=== PATIENT | male | born 2000 | race Caucasian/White ===

== ENCOUNTER 2018-04-02 17:28 | Observation (INO) | payer BC ==
[2018-04-02] MEDS ORDERED: SODIUM CHLORIDE 0.9% 1,000 ML IV STA (18:09)
[2018-04-02] MEDS ORDERED: KETOROLAC 30 MG/ML 1 ML VIAL IVP STA (18:09)
[2018-04-02] MEDS ORDERED: ONDANSETRON 4 MG/2 ML VIAL IVP STA (18:17)
--- NOTE | 2018-04-02 18:26 | ED ---
General Adult HPI - General Chief complaint: Abdominal Pain Stated complaint: abd pain Time Seen by Provider: 04/02/18 17:51 Source: patient, RN notes reviewed Mode of arrival: ambulatory Limitations: no limitations - History of Present Illness Initial comments: 18-year-old male presents to the emergency determine for a chief complaint of abdominal pain times one day. Patient states he woke up with the pain earlier this morning. Patient states the pain has been constant. He states it is on his right upper quadrant and midepigastric area as well as around his bellybutton. Patient states he has not been hungry or had an appetite today. He did try to eat some crackers earlier in case that made it better but it did not. Patient has also been nauseous but has not vomited. No diarrhea. Last bowel movement was normal around 4 hours ago. Patient denies any testicular pain. No concern for STDs. Denies urinary symptoms. Patient did try to take Motrin which did not help with the pain. No abdominal surgeries. Patient up-to -date on immunizations. No fevers or chills at home. Patient has no other complaints at this time including shortness of breath, chest pain, abdominal pain, nausea or vomiting, headache, or visual changes. - Related Data Home Medications Medication Instructions Recorded Confirmed No Known Home Medications 04/02/18 04/02/18 Allergies Allergy/AdvReac Type Severity Reaction Status Date / Time Penicillins Allergy Unknown Verified 04/02/18 17:29 venom-honey bee Allergy Unknown Verified 04/02/18 17:29 [bee venom (honey bee)] Review of Systems ROS Statement: Those systems with pertinent positive or pertinent negative responses have been documented in the HPI. ROS Other: All systems not noted in ROS Statement are negative. Past Medical History Past Medical History: No Reported History History of Any Multi-Drug Resistant Organisms: None Reported Past Surgical History: No Surgical Hx Reported Past Psychological History: No Psychological Hx Reported Smoking Status: Never smoker Past Alcohol Use History: None Reported Past Drug Use History: None Reported General Exam Limitations: no limitations General appearance: alert, in no apparent distress Eye exam: Present: normal appearance. Absent: scleral icterus, conjunctival injection Neck exam: Present: normal inspection, full ROM. Absent: tenderness, meningismus, lymphadenopathy Respiratory exam: Present: normal lung sounds bilaterally. Absent: respiratory distress, wheezes, rales, rhonchi, stridor Cardiovascular Exam: Present: regular rate, normal rhythm, normal heart sounds. Absent: systolic murmur, diastolic murmur, rubs, gallop, clicks GI/Abdominal exam: Present: soft, tenderness (mild tenderness to the RLQ), normal bowel sounds, other (positive rovsing sign, negative obturator). Absent : distended, guarding, rebound, rigid Course Vital Signs 04/02/18 04/02/18 17:30 18:55 Temperature 97.5 F L 99.4 F Pulse Rate 71 99 Respiratory 18 18 Rate Blood Pressure 140/89 121/60 O2 Sat by Pulse 96 98 Oximetry Medical Decision Making - Medical Decision Making 18-year-old male presents to the emergency department for a chief complaint of abdominal pain times one day. Patient noticed at around 6 AM this morning. He has had a low appetite and nausea. No vomiting or diarrhea. Patient states the pain is midepigastric and mid abdominal. No fevers or chills at home. No testicular pain. Patient is afebrile in the emergency department. Pulse rate 71. On exam patient has positive right lower quadrant pain as well as positive Rovsing sign. Negative obturator sign. White count 20.6 with a left shift. CT of the abdomen shows a distended tubular structure measuring approximately 1-1 cm in diameter. Suspect these represent a distended appendix with an appendicolith. Dr. pace was consulted and will be admitting the patient and seeing him tonight. - Lab Data Result diagrams: 04/02/18 18:09 04/02/18 18:09 Lab Results 04/02/18 04/02/18 04/02/18 Range/Units 18:09 18:09 18:09 WBC 20.6 H (4.0-11.0) k/uL RBC 5.82 (4.30-5.90) m/uL Hgb 16.9 (13.0-17.5) gm/dL Hct 49.0 (39.0-53.0) % MCV 84.2 (80.0-100.0) fL MCH 29.0 (25.0-35.0) pg MCHC 34.5 (31.0-37.0) g/dL RDW 12.3 (11.5-15.5) % Plt Count 327 (150-450) k/uL Neutrophils % 87 % Lymphocytes % 7 % Monocytes % 5 % Eosinophils % 1 % Basophils % 0 % Neutrophils # 18.0 H (1.3-7.7) k/uL Lymphocytes # 1.3 (1.0-4.8) k/uL Monocytes # 1.0 (0-1.0) k/uL Eosinophils # 0.1 (0-0.7) k/uL Basophils # 0.0 (0-0.2) k/uL Sodium 141 (137-145) mmol/L Potassium 4.2 (3.5-5.1) mmol/L Chloride 105 (98-107) mmol/L Carbon Dioxide 25 (22-30) mmol/L Anion Gap 11 mmol/L BUN 11 (9-20) mg/dL Creatinine 0.80 (0.66-1.25) mg/dL Est GFR (CKD-EPI)AfAm >90 (>60 ml/min/1.73 sqM) Est GFR (CKD-EPI)NonAf >90 (>60 ml/min/1.73 sqM) Glucose 126 H (74-99) mg/dL Calcium 10.2 (8.4-10.2) mg/dL Total Bilirubin 1.1 (0.2-1.3) mg/dL AST 29 (17-59) U/L ALT 45 (21-72) U/L Alkaline Phosphatase 110 (38-126) U/L Total Protein 7.9 (6.3-8.2) g/dL Albumin 4.8 (3.5-5.0) g/dL Amylase 45 (30-110) U/L Lipase 33 (23-300) U/L Urine Color Yellow Urine Appearance Clear (Clear) Urine pH 6.5 (5.0-8.0) Ur Specific [place] 1.019 (1.001-1.035) Urine Protein Trace H (Negative) Urine Glucose (UA) Negative (Negative) Urine Ketones 2+ H (Negative) Urine Blood Negative (Negative) Urine Nitrite Negative (Negative) Urine Bilirubin Negative (Negative) Urine Urobilinogen <2.0 (<2.0) mg/dL Ur Leukocyte Esterase Negative (Negative) Disposition Clinical Impression: Appendicitis Disposition: ADMITTED IP TO THIS HOSP Is patient prescribed a controlled substance at d/c from ED?: No Referrals: Rikki Arzola MD [Primary Care Provider] - 1-2 days Time of Disposition: 20:50
[2018-04-02 18:27] LABS: Basophils % (A) 0 %; Eosinophils # (A) 0.1 k/uL (0-0.7); Eosinophils % (A) 1 %; HGB 16.9 gm/dL (13.0-17.5); Lymphocytes # (A) 1.3 k/uL (1.0-4.8); Lymphocytes % (A) 7 %; MCHC 34.5 g/dL (31.0-37.0); MCV 84.2 fL (80.0-100.0); Mean Platelet Volume 6.6; Monocytes % (A) 5 %; Neutrophils % (A) 87 %; Platelet Count 327 k/uL (150-450); RBC 5.82 m/uL (4.30-5.90); RDW 12.3 % (11.5-15.5); WBC 20.6 k/uL (4.0-11.0)
[2018-04-02 18:28] LABS: Appearance,Urine Clear (Clear); Bilirubin,Urine Negative (Negative); Blood,Urine Negative (Negative); Color,Urine Yellow; Glucose,Urine (UA) Negative (Negative); Ketones,Urine 2+ (Negative); Leukocyte Esterase,Urine Negative (Negative); Nitrite,Urine Negative (Negative); PH, Urine 6.5 (5.0-8.0); Protein,Urine Trace (Negative); Specific Gravity,Urine 1.019 (1.001-1.035); Urobilinogen,Urine <2.0 mg/dL (<2.0)
[2018-04-02 18:36] LABS: ALT 45 U/L (21-72); AST 29 U/L (17-59); Albumin 4.8 g/dL (3.5-5.0); Alkaline Phosphatase 110 U/L (38-126); Amylase 45 U/L (30-110); Anion Gap 11 mmol/L; Blood Urea Nitrogen 11 mg/dL (9-20); Calcium 10.2 mg/dL (8.4-10.2); Carbon Dioxide 25 mmol/L (22-30); Chloride 105 mmol/L (98-107); Glucose 126 mg/dL (74-99); Lipase 33 U/L (23-300); Potassium 4.2 mmol/L (3.5-5.1); Sodium 141 mmol/L (137-145); Total Bilirubin 1.1 mg/dL (0.2-1.3); Total Protein 7.9 g/dL (6.3-8.2)
[2018-04-02] MEDS ORDERED: ACETAMINOPHEN IV (For NPO) 1,000 MG in EMPTY BAG 1 BAG IVPB ONE (18:49)
--- NOTE | 2018-04-02 19:55 | CT ---
EXAMINATION TYPE: CT abdomen pelvis w con DATE OF EXAM: 04/02/2018 COMPARISON: No prior study available in the PACS system. HISTORY: Patient complains of right flank pain. CT DLP: 449 mGycm Automated exposure control for dose reduction was used. TECHNIQUE: Helical acquisition of images was performed from the lung bases through the pelvis. CONTRAST: Performed without Oral Contrast and with IV Contrast, patient injected with 100 mL of Isovue 300. FINDINGS: LUNG BASES: No significant abnormality is appreciated. LIVER/GB: No distention of the intrahepatic biliary radicles or cholelithiasis. PANCREAS: No significant abnormality is seen. SPLEEN: No significant abnormality is seen. ADRENALS: No significant abnormality is seen. KIDNEYS: No significant abnormality is seen. FREE AIR: No free air is visualized. RETROPERITONEAL ADENOPATHY: None visualized REPRODUCTIVE ORGANS: No significant abnormality is seen URINARY BLADDER: No significant abnormality is seen. PELVIC ADENOPATHY: None visualized. OSSEOUS STRUCTURES: No significant abnormality is seen. BOWEL: No free air or bowel obstruction. There is a calcific density projecting medial to the cecum i ncite a tubular structure suggestive of appendicolith with a thickened appendix indicating appendicit is. There is a small amount of free fluid inside the cul-de-sac and peritoneal cavity. The fluid measures 5 x 1.5 cm. OTHER: IMPRESSION: DISTENDED TUBULAR STRUCTURE MEASURING APPROXIMATELY 1 TO 1 CM IN DIAMETER WITH INTRALUMINAL CALCIFICA TION PROJECTING MEDIAL TO THE CECUM. SUSPECT THESE REPRESENT A DISTENDED APPENDIX WITH AN APPENDICOLI TH. SUSPECT APPENDICITIS UNDER PORTABLE OTHERWISE. THERE IS ALSO SMALL AMOUNT OF FREE FLUID IN THE CU L-DE-SAC AND LOWER PELVIS DESCRIBED ABOVE.
[2018-04-02] MEDS ORDERED: HEPARIN SODIUM,PORCINE 5,000 UNIT/ML 1 ML VIAL SQ STA (20:42)
[2018-04-02] MEDS ORDERED: metroNIDAZOLE-NS PMX 500 MG in SALINE 1 100ML.BAG IVPB STA (20:44)
[2018-04-02] MEDS ORDERED: LEVOFLOXACIN 500MG-D5W PMX 500 MG in DEXTROSE/WATER 1 100ML.BAG IVPB STA (20:44)
[2018-04-02] MEDS ORDERED: KETOROLAC 30 MG/ML 1 ML VIAL IVP PRN (20:52)
[2018-04-02] MEDS ORDERED: NALOXONE 0.4 MG/ML 1 ML VIAL IV PRN ×2 (20:52→22:44)
[2018-04-02] MEDS ORDERED: MORPHINE SULFATE 4 MG/ML SYRINGE IV PRN (20:52)
[2018-04-02] MEDS ORDERED: ONDANSETRON 4 MG/2 ML VIAL IVP PRN (20:52)
[2018-04-02] MEDS ORDERED: SODIUM CHLORIDE 0.9% 1,000 ML IV SCH (21:00)
[2018-04-02] MEDS ORDERED: ONDANSETRON 4 MG/2 ML VIAL ONE (21:30)
[2018-04-02] MEDS ORDERED: DEXAMETHASONE SOD PHOS (MDV) 100 MG/10 ML VIAL ONE (21:30)
[2018-04-02] MEDS ORDERED: HEPARIN SODIUM,PORCINE 5,000 UNIT/ML 1 ML VIAL ONE (21:30)
[2018-04-02] MEDS ORDERED: SUCCINYLCHOLINE CHLORIDE 100 MG/5 ML SYR IV ONE (21:46)
[2018-04-02] MEDS ORDERED: GLYCOPYRROLATE 0.2 MG/ML 2 ML VIAL ONE (21:46)
[2018-04-02] MEDS ORDERED: ROCURONIUM BROMIDE 10 MG/ML 10 ML VIAL IV ONE (21:46)
[2018-04-02] MEDS ORDERED: PROPOFOL 10 MG/ML 20 ML VIAL IV ONE (21:46)
[2018-04-02] MEDS ORDERED: LIDOCAINE 1% INJ 10MG/ML (20 ML MDV) ONE (21:46)
[2018-04-02] MEDS ORDERED: MIDAZOLAM 2 MG/2 ML VIAL ONE (21:46)
[2018-04-02] MEDS ORDERED: IV FLUID CONTINUATION 300 ML IV ONE (21:46)
[2018-04-02] MEDS ORDERED: fentaNYL (PF) 50 MCG/ML 2 ML AMP ONE (21:46)
[2018-04-02] MEDS ORDERED: NEOSTIGMINE 1 MG/ML 10 ML VIAL ONE (21:46)
--- NOTE | 2018-04-02 21:56 | P.GSHP ---
History of Present Illness H&P Date: 04/02/18 This is a 18-year-old male who presented with a chief complaint of abdominal pain right lower quadrant he states it started in his midepigastric area periumbilical and throughout the day moved down to his right lower quadrant he had some nausea no vomiting he denies any chills or fever. He has a minimal appetite is lasting to E was at 1:00 is never had pain like this before he denies any surgical history he has no significant past medical history. Past Medical History Past Medical History: No Reported History History of Any Multi-Drug Resistant Organisms: None Reported Past Surgical History: No Surgical Hx Reported Past Psychological History: No Psychological Hx Reported Smoking Status: Never smoker Past Alcohol Use History: None Reported Past Drug Use History: None Reported Medications and Allergies Home Medications Medication Instructions Recorded Confirmed Type No Known Home Medications 04/02/18 04/02/18 History Allergies Allergy/AdvReac Type Severity Reaction Status Date / Time Penicillins Allergy Unknown Verified 04/02/18 17:29 venom-honey bee Allergy Unknown Verified 04/02/18 17:29 [bee venom (honey bee)] Surgical - Exam Osteopathic Statement: *. No significant issues noted on an osteopathic structural exam other than those noted in the History and Physical/Consult. Vital Signs Temp Pulse Resp BP Pulse Ox 97.5 F L 71 18 140/89 96 04/02/18 17:30 04/02/18 17:30 04/02/18 17:30 04/02/18 17:30 04/02/18 17:30 - General well developed, well nourished, no distress - Eyes PERRL - Neck trachea midline - Respiratory normal expansion, normal respiratory effort - Cardiovascular Rhythm: regular - Abdomen nondistended, TTP RLQ Abdomen: soft - Neurologic normal coordination - Psychiatric oriented to time, oriented to person, oriented to place Results - Labs 04/02/18 18:09 04/02/18 18:09 Abnormal Lab Results - Last 24 Hours (Table) 04/02/18 04/02/18 04/02/18 Range/Units 18:09 18:09 18:09 WBC 20.6 H (4.0-11.0) k/uL Neutrophils # 18.0 H (1.3-7.7) k/uL Glucose 126 H (74-99) mg/dL Urine Protein Trace H (Negative) Urine Ketones 2+ H (Negative) Diabetes panel 04/02/18 Range/Units 18:09 Sodium 141 (137-145) mmol/L Potassium 4.2 (3.5-5.1) mmol/L Chloride 105 (98-107) mmol/L Carbon Dioxide 25 (22-30) mmol/L BUN 11 (9-20) mg/dL Creatinine 0.80 (0.66-1.25) mg/dL Glucose 126 H (74-99) mg/dL Calcium 10.2 (8.4-10.2) mg/dL AST 29 (17-59) U/L ALT 45 (21-72) U/L Alkaline Phosphatase 110 (38-126) U/L Total Protein 7.9 (6.3-8.2) g/dL Albumin 4.8 (3.5-5.0) g/dL Calcium panel 04/02/18 Range/Units 18:09 Calcium 10.2 (8.4-10.2) mg/dL Albumin 4.8 (3.5-5.0) g/dL Pituitary panel 04/02/18 Range/Units 18:09 Sodium 141 (137-145) mmol/L Potassium 4.2 (3.5-5.1) mmol/L Chloride 105 (98-107) mmol/L Carbon Dioxide 25 (22-30) mmol/L BUN 11 (9-20) mg/dL Creatinine 0.80 (0.66-1.25) mg/dL Glucose 126 H (74-99) mg/dL Calcium 10.2 (8.4-10.2) mg/dL Adrenal panel 04/02/18 Range/Units 18:09 Sodium 141 (137-145) mmol/L Potassium 4.2 (3.5-5.1) mmol/L Chloride 105 (98-107) mmol/L Carbon Dioxide 25 (22-30) mmol/L BUN 11 (9-20) mg/dL Creatinine 0.80 (0.66-1.25) mg/dL Glucose 126 H (74-99) mg/dL Calcium 10.2 (8.4-10.2) mg/dL Total Bilirubin 1.1 (0.2-1.3) mg/dL AST 29 (17-59) U/L ALT 45 (21-72) U/L Alkaline Phosphatase 110 (38-126) U/L Total Protein 7.9 (6.3-8.2) g/dL Albumin 4.8 (3.5-5.0) g/dL - Imaging CT scan - abdomen: report reviewed, image reviewed CT scan - pelvis: report reviewed, image reviewed Assessment and Plan Assessment: Acute appendicitis Plan: NPO, IV ABX, IVF, Lap appendectomy possible open was discussed with patient and family, risks benefits and alternativs were discussed, they understood the patient understood and consented.
[2018-04-02] MEDS ORDERED: LACTATED RINGERS 1,000 ML IV ONE ×3 (22:00→22:44)
[2018-04-02] MEDS ORDERED: BUPIVACAINE (PF) 0.5% 30 ML VIAL SQ ONE ×2 (22:08→22:32)
--- NOTE | 2018-04-02 22:43 | P.OP ---
Date of Procedure: 04/02/18 Preoperative Diagnosis: Acute appendicitis Postoperative Diagnosis: Acute appendicitis Procedure(s) Performed: Laparoscopic appendectomy Anesthesia: CAITY Surgeon: Rosas Matthews Estimated Blood Loss (ml): 5 Condition: stable Disposition: PACU Indications for Procedure: This is a 18-year-old male who presented emergency room with a one-day history of right lower quadrant abdominal pain he had clinical findings and CT exam which was consistent with acute appendicitis. Risks benefits and alternatives to laparoscopic appendectomy possible open were discussed with the patient including risks of bleeding infection damage to surrounding tissue need for further operation and conversion to open he stated he understood agreed and consented informed consent was obtained Description of Procedure: Patient was brought into the operative suite remained in the supine position was prepped and draped in the usual sterile fashion timeout was performed correct patient correct procedure correct site was verified. Local anesthetic was used to anesthetize the skin and subcutaneous tissues in the left lower quadrant a 12 mm incision was made and 12 mm Visiport was used to enter the abdomen under direct visualization the abdomen was insufflated and no injuries were noted. A 5 mm port was placed supraumbilical and a 5 mm port was placed suprapubic. The patient was positioned head down right side up and the cecum was identified. The appendix was identified noted to be markedly dilated and injected. The appendix was retracted anteriorly and the mesial appendix was taken down with a LigaSure device to the base of the appendix. Using a purple load 45 mm Endo DEBORAH stapler the appendix was stapled across at the base of the cecum. The appendix was then placed and a 10 mm Endo Catch bag and removed through the 12 mm port site. The staple line was inspected for hemostasis which was noted. The 12 mm port site was then closed with 0 Vicryl in a figure- of-eight fashion with 8 of a Yovanny-Georgette suture passer. The abdomen was once again inspected hemostasis was noted. The ports were then removed under direct visualization the abdomen was desufflated the skin was closed with 4-0 Monocryl sutures and skin glue patient tolerated procedure well no apparent complications
[2018-04-02] MEDS ORDERED: HYDROmorphone 1 MG/ML 1 ML SYRINGE IVP PRN (22:44)
[2018-04-02] MEDS: MEPERIDINE 50 MG/ML SYRINGE IVP ONE ×2 (22:44→23:11)
[2018-04-02] MEDS ORDERED: HYDROcodone/APAP 5-325MG 1 EACH TAB PO PRN (22:47)
[2018-04-02 23:02] VITALS: RESP 16
[2018-04-03 00:01] VITALS: BMI 23.0
[2018-04-03 00:48] VITALS: TEMP 98.8
[2018-04-03 07:42] LABS: Basophils % (A) 0 %; Eosinophils % (A) 0 %; HCT 44.3 % (39.0-53.0); HGB 15.2 gm/dL (13.0-17.5); Lymphocytes # (A) 0.7 k/uL (1.0-4.8); Lymphocytes % (A) 5 %; MCH 29.1 pg (25.0-35.0); MCHC 34.3 g/dL (31.0-37.0); Mean Platelet Volume 6.8; Monocytes # (A) 0.6 k/uL (0-1.0); Monocytes % (A) 4 %; Neutrophils # (A) 13.1 k/uL (1.3-7.7); Neutrophils % (A) 91 %; Platelet Count 285 k/uL (150-450); RBC 5.21 m/uL (4.30-5.90); RDW 12.2 % (11.5-15.5); WBC 14.3 k/uL (4.0-11.0)
[2018-04-03 08:02] LABS: Anion Gap 8 mmol/L; Blood Urea Nitrogen 10 mg/dL (9-20); Carbon Dioxide 27 mmol/L (22-30); Chloride 103 mmol/L (98-107); Glucose 141 mg/dL (74-99); Potassium 4.5 mmol/L (3.5-5.1); Sodium 138 mmol/L (137-145)
[2018-04-03 09:24] VITALS: BP 134/72; PULSE 87
--- NOTE | 2018-04-03 12:49 | P.DS ---
Providers Date of admission: 04/02/18 20:26 Attending physician: Rosas Matthews DO Consults: 04/02/18 20:40 Consult Physician Routine Consulting Provider: [facility] Consult Reason/Comments: [facility] Do you want consulting provider notified?: Yes [facility] Course: patient was admitted after lap appendectomy for observation. He did well overnight. Tolerating diet with pain controlled. DC home in stable condition with instructions to follow up in 1-2 weeks Procedures: Lap appendectomy Patient Condition at Discharge: Stable Plan - Discharge Summary New Discharge Prescriptions: New HYDROcodone/APAP 5-325MG [[place] 5-325] 1 tab PO Q4HR PRN 3 Days #12 tab PRN Reason: Pain Discharge Medication List HYDROcodone/APAP 5-325MG [[place] 5-325] 1 tab PO Q4HR PRN 3 Days #12 tab [Rx] Follow up Appointment(s)/Referral(s): Rikki Arzola MD [Primary Care Provider] - 1-2 days Rosas Matthews DO [Doctor of Osteopathic Medicine] - 10 Days Discharge Disposition: HOME SELF-CARE
== END 2018-04-03 13:14 | disposition home or self-care (01) ==
LOC: EC 17:28 → 3OBS 20:26
PROVIDERS: ADMIT Student in an Organized Health Care Education/Training Program; ATTEND Student in an Organized Health Care Education/Training Program
DX: K35.3 Acute appendicitis with localized peritonitis (principal); Z88.0 Allergy status to penicillin; Z91.030 Bee allergy status
CPT/HCPCS: 44970; 99285 ×2; 96374 ×2; 96375 ×3; 96361 ×2; 36415; 88304; 80053; 80048; 82150; 83690; 85025 ×2; 81003; 74177; G0378 ×2; J2250; J1644; J2710; J2175; J2405; J1956; J2001; J3010; J1885 ×2; J1100; J0131; J0330; J2704; Q9967

== ENCOUNTER → 2019-08-09 | Outpatient (CLI) | payer BC ==
--- NOTE | 2019-08-09 11:20 | US ---
EXAMINATION TYPE: US thyroid st tissue head/neck DATE OF EXAM: 08/09/2019 COMPARISON: NONE CLINICAL HISTORY: R22.1 Lump in Neck. Pt states feeling palpable lump right lateral neck x 1 month, d enies pain Right lateral neck scanned, in area of pt's palpable there appears to be a chain of three probable lymph nodes: 1)= largest at 2.2 x 1.2 x 1.1 cm 2)= 1.6 x 0.6 x 0.6 cm 3)= 0.9 x 0.5 x 0.5 cm IMPRESSION: Abnormal lymph nodes some greater than 1 cm short axis with loss of fatty hilum. Differen tial includes infectious inflammatory and neoplastic etiology such as lymphoma. Clinical correlation advised. Further workup with contrast-enhanced CT or MRI should be considered based on clinical corre lation.
== END | disposition home or self-care (01) ==
LOC: RADUSWWP 10:47
PROVIDERS: ATTEND Otolaryngology
DX: R93.89 Abnormal findings on diagnostic imaging of other specified body structures (principal)
CPT/HCPCS: 76536

== ENCOUNTER 2019-09-11 12:54 | Day surgery (SDC) | payer BC ==
[2019-09-11 13:47] VITALS: RESP 16; TEMP 97.8
--- NOTE | 2019-09-11 14:50 | US ---
ULTRASOUND GUIDED CORE BIOPSY RIGHT NECK LYMPHADENOPATHY: CLINICAL HISTORY: Right neck lymph node FINDINGS: The procedure was explained to the patient. The risks, complications, benefits and alternatives were discussed and any questions were answered. Informed consent was obtained. Patient was placed supin e on the ultrasound table and prepped and draped in the usual sterile fashion. Utilizing a 18 gauge needle, four passes were made into the right neck lymph node. Patient was stable throughout the procedure. Pathology is pending. All elements of maximal barrier technique were utilized. IMPRESSION: 1. Successful ultrasound guided core biopsy of a right neck lymph node.
[2019-09-11 15:02] VITALS: BP 141/71; PULSE 98
== END 2019-09-11 14:45 | disposition home or self-care (01) ==
LOC: RADPROMAIN 12:54
PROVIDERS: ATTEND Otolaryngology
DX: R59.0 Localized enlarged lymph nodes (principal)
CPT/HCPCS: 38505; 76942; 88305